=== PATIENT | female | born 1990 | race Caucasian/White ===

== ENCOUNTER → 2017-01-29 02:30 | Emergency (ER) | payer OTHER ==
--- NOTE | ~2017-01-29 | EKG ---
PATIENT: ARTEMIO SAPP UNIT #: [id number] Ventricular Rate: 118 BPM Atrial Rate: 118 BPM P-R Interval: 152 ms QRS Duration: 80 ms Q-T Interval: 330 ms QTC Calculation(Bezet): 462 ms Calculated R [place]: 146 degrees Calculated T [place]: 148 degrees Diagnosis Line: Sinus tachycardia Diagnosis Line: Inappropriate lead positioning Diagnosis Line: Left atrial enlargement Diagnosis Line: Right axis deviation Diagnosis Line: Abnormal ECG Diagnosis Line: No previous ECGs available Diagnosis Line: Confirmed by JEANETTE LYNCH MD ([id number]) on Diagnosis Line: 01/30/2017 10:58:34 PM INTERPRETING MD: [email or web address]
== END | disposition left against medical advice (07) ==
LOC: CED 02:30
DX: Z53.21 Procedure and treatment not carried out due to patient leaving prior to being seen by health care provider (principal)
CPT/HCPCS: 93005